=== PATIENT | male | born 1990 | race Hispanic/Latino ===

== ENCOUNTER → 2020-07-09 | Outpatient (CLI) | payer BC ==
--- NOTE | 2020-07-09 14:25 | NUR ---
BARIATRIC NUTRITION CONSULT FOLLOW UP Time of Visit: 12PM - 12:30PM Pt returns with a weight loss of three pounds and states pants feel looser. 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 His transition in sleep schedule lasted one week. Pt reports he is able to now meal prep and takes lunch to work rather than ordering fast food. Pt has had difficulty with maintaining workout routine, as he used to workout during the day and work in the evening. Now however it is difficult to cycle in the evening so he is face some adjustments. Pt does continue to work out on his days off, which is twice per week. He also states he is doing more walking at his job during the day. Pt reports 24-hour recall of energy dense foods at meal times and snacks on fruits. Pt consumed [employer], lemonade, beer, and water as beverages during meal times. Pt does carry a gallon jug of water daily and completes 75% of it each day. ANNABEL provided "Healthy Eating on the Run" and "20 Ways to Include more Fruits and Vegetables" handouts with Pt. Also discussed importance of healthy foods and nutrient-rich vs energy dense foods. 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 Addendum: 07/09/20 at [address] Amended: Links added. Addendum: 07/09/20 at [address] ADDENDUM RD to include Pt mentioned purchasing an air fryer to help with decreasing fatty food intake. Pt reports using on a regular basis and is very helpful!
== END | disposition home or self-care (01) ==
LOC: DTH 11:46
PROVIDERS: ATTEND Surgery
DX: R63.4 Abnormal weight loss (principal)
CPT/HCPCS: 97803

== ENCOUNTER → 2020-08-07 | Outpatient (CLI) | payer BC ==
--- NOTE | 2020-08-07 12:56 | NUR ---
PRE-OP BARIATRIC NUTRITION EDUCATION VISIT 3 OF 3 DATE: 08/07/20 TIME: 12:30-12:50PM ANNABEL thoroughly discussed nutrition requirements with Pt. RD reviewed Pre-Op Nutrition meal planning with Pt. RD reviewed Phases I-V with Pt. Pt with few questions. RD answered all Pt questions. Pt verbalized understanding. Pre-Op diet to be initiated 1 week prior to procedure. Contact information provided. RD to follow up with Pt post procedure. Addendum: 08/07/20 at [address] Amended: Links added.
== END | disposition home or self-care (01) ==
LOC: DTH 12:15
PROVIDERS: ATTEND Surgery
DX: Z01.818 Encounter for other preprocedural examination (principal); E66.09 Other obesity due to excess calories; Z68.30 Body mass index [BMI] 30.0-30.9, adult
CPT/HCPCS: 97803

== ENCOUNTER 2020-11-16 10:45 | Inpatient (IN) | payer BC ==
[~2020-11-16] VITALS: Ht 182.9 cm; Wt 145.1 kg
[~2020-11-16 10:45] MED LIST: IBUP-2784 PO; MULT-1203 PO
[2020-11-16 13:14] LABS: BASOPHILS % (AUTO) 0.1 % (0.0-5.0); EOSINOPHILS % (AUTO) 1.7 % (0.0-8.0); LYMPHOCYTES % (AUTO) 40.2 % (21.0-51.0); MEAN CORPUSCULAR HEMOGLOBIN 29.4 pg (27.0-33.0); MEAN CORPUSCULAR HGB CONC 33.1 g/dL (32.0-36.0); MEAN CORPUSCULAR VOLUME 88.8 fL (79-99); MONOCYTES % (AUTO) 7.6 % (3.0-13.0); NEUTROPHILS % (AUTO) 50.1 % (40.0-77.0); PLATELET COUNT (AUTO) 258 K/uL (130-400); RED BLOOD CELL COUNT(AUTO) 5.07 MIL/uL (4.50-6.20); RED CELL DISTRIBUTION WIDTH 12.4 % (11.0-15.5); WHITE BLOOD COUNT (AUTO) 7.3 K/uL (4.8-10.8)
[2020-11-16 13:24] LABS: CREATININE 0.9 mg/dL (0.5-1.5); POTASSIUM 3.9 mmol/L (3.5-5.1)
[2020-11-16 13:27] LABS: INR 1.03 (0.85-1.15); PROTHROMBIN TIME 11.2 SEC (9.6-11.6)
[2020-11-16 13:28] LABS: PARTIAL THROMBOPLASTIN TIME 29.2 SEC (26.3-35.5)
[2020-11-20 09:38] VITALS: BP_SYST 162; BP_SYST 165; BP_DIAS 103; BP_DIAS 93
[2020-11-23] VITALS (22 sets, daily range): BP systolic 112–150; BP diastolic 66–91
[2020-11-23] MEDS ORDERED: 0.9% NACL 500ML IV.SOLN 500 ML IV SCH (05:00)
[2020-11-23] MEDS: CEFAZOLIN SODIUM 1 GM VIAL IVP SCH ×2 (06:00→13:35)
[2020-11-23] MEDS ORDERED: LACTATED RINGERS 1000ML 1,000 ML IV ONE (10:11)
[2020-11-23] MEDS ORDERED: DEXAMETHASONE SOD PHOSPHATE 10MG/ML 1ML VIAL ONE (11:53)
[2020-11-23] MEDS ORDERED: SUCCINYLCHOLINE CHLORIDE 20 MG/ML 10 ML VIAL ONE (11:53)
[2020-11-23] MEDS ORDERED: ONDANSETRON 4MG INJ ONE (11:53)
[2020-11-23] MEDS ORDERED: LIDOCAINE PF 100MG/5ML (2%) SYRINGE 5ML ONE (11:53)
[2020-11-23] MEDS ORDERED: MIDAZOLAM HCL 1 MG/ML 2ML VIAL ONE (11:54)
[2020-11-23] MEDS ORDERED: ROCURONIUM 10MG/1ML SYR 10 MG/ML ML ONE (11:54)
[2020-11-23] MEDS ORDERED: PROPOFOL 10 MG/ML 20ML VIAL IV ONE ×2 (11:54→11:55)
[2020-11-23] MEDS ORDERED: GLYCOPYRROLATE 1 MG/5 ML SYRINGE ONE (11:54)
[2020-11-23] MEDS ORDERED: NEOSTIGMINE 5MG/5ML SYR IV ONE (11:54)
[2020-11-23] MEDS ORDERED: FENTANYL CITRATE PF 50 MCG/1 ML 2ML VIAL ONE (11:54)
[2020-11-23] MEDS ORDERED: OXYMETAZOLINE HCL SPRAY 15 ML BOTTLE ONE (12:03)
[2020-11-23] MEDS ORDERED: FENTANYL CITRATE PF 50 MCG/1 ML 5ML AMP IV ONE (13:49)
[2020-11-23] MEDS ORDERED: BUPIVACAINE/PF 0.5% 30ML VIAL ONE (14:13)
[2020-11-23] MEDS: LACTATED RINGERS 1000ML 1,000 ML IV SCH ×2 (14:45→21:07)
[2020-11-23] MEDS: MORPHINE 4 MG SYG IVP PRN (16:54)
[2020-11-23] MEDS: FAMOTIDINE 20MG VIAL IV SCH (21:07)
[2020-11-23] MEDS: ENOXAPARIN SODIUM 30 MG/0.3 ML SQ SCH (21:07)
[2020-11-24] VITALS (7 sets, daily range): BP systolic 132–155; BP diastolic 78–95
[2020-11-24] MEDS: ONDANSETRON 4MG INJ IVP PRN ×4 (00:22→20:44)
[2020-11-24] MEDS: MORPHINE 4 MG SYG IVP PRN ×4 (00:22→20:44)
[2020-11-24 05:18] LABS: HEMATOCRIT 37.2 % (42-54); MEAN CORPUSCULAR HEMOGLOBIN 29.8 pg (27.0-33.0); MEAN CORPUSCULAR HGB CONC 34.7 g/dL (32.0-36.0); MEAN CORPUSCULAR VOLUME 85.9 fL (79-99); PLATELET COUNT (AUTO) 231 K/uL (130-400); RED BLOOD CELL COUNT(AUTO) 4.33 MIL/uL (4.50-6.20)
[2020-11-24 05:40] LABS: CREATININE 0.9 mg/dL (0.5-1.5); POTASSIUM 4.1 mmol/L (3.5-5.1)
[2020-11-24 06:33] LABS: LYMPHOCYTES % (MANUAL) 10 % (22-44); MAN.DIFF COMMENT-IMPRESSION MANUAL DIFFERENTIAL; MONOCYTES % (MANUAL) 2 % (2-9); SEGMENTED NEUTROPHILS % 88 % (40-70)
[2020-11-24 06:35] LABS: PLATELET MORPHOLOGY COMMENT ADEQUATE
[2020-11-24] MEDS: LACTATED RINGERS 1000ML 1,000 ML IV SCH ×2 (06:55→14:45)
[2020-11-24] MEDS: ENOXAPARIN SODIUM 30 MG/0.3 ML SQ SCH ×2 (08:20→20:36)
[2020-11-24] MEDS: FAMOTIDINE 20MG VIAL IV SCH ×2 (08:21→20:35)
[2020-11-25 04:00] VITALS: BP 146/90
[2020-11-25 05:32] LABS: HEMATOCRIT 38.5 % (42-54); MEAN CORPUSCULAR HEMOGLOBIN 29.7 pg (27.0-33.0); MEAN CORPUSCULAR HGB CONC 34.3 g/dL (32.0-36.0); MEAN CORPUSCULAR VOLUME 86.7 fL (79-99); PLATELET COUNT (AUTO) 251 K/uL (130-400); RED BLOOD CELL COUNT(AUTO) 4.44 MIL/uL (4.50-6.20); RED CELL DISTRIBUTION WIDTH 12.4 % (11.0-15.5); WHITE BLOOD COUNT (AUTO) 11.3 K/uL (4.8-10.8)
[2020-11-25 05:50] LABS: ALBUMIN 3.7 g/dL (3.5-5.0); BILIRUBIN,TOTAL 0.6 mg/dL (0.2-1.0); CREATININE 0.9 mg/dL (0.5-1.5); POTASSIUM 4.2 mmol/L (3.5-5.1); TOTAL PROTEIN, SERUM 7.7 g/dL (6.0-8.3)
[2020-11-25 05:54] LABS: LYMPHOCYTES % (MANUAL) 14 % (22-44); MAN.DIFF COMMENT-IMPRESSION MANUAL DIFFERENTIAL; MONOCYTES % (MANUAL) 4 % (2-9); PLATELET MORPHOLOGY COMMENT ADEQUATE; SEGMENTED NEUTROPHILS % 82 % (40-70)
[2020-11-25] MEDS: LACTATED RINGERS 1000ML 1,000 ML IV SCH ×2 (06:45→14:51)
[2020-11-25 07:00] VITALS: BP 124/77
[2020-11-25] MEDS: ENOXAPARIN SODIUM 30 MG/0.3 ML SQ SCH (08:56)
[2020-11-25] MEDS: FAMOTIDINE 20MG VIAL IV SCH (08:57)
[2020-11-25 16:00] VITALS: BP 144/92
== END 2020-11-25 18:17 | disposition home or self-care (01) | DRG 621 ==
LOC: EDSTATUS 10:45 → DAHIP 11-23 09:34 → 3BH 11-23 16:11
PROVIDERS: ADMIT Surgery; ATTEND Surgery
PROC: 0DB64Z3 Excision of Stomach, Percutaneous Endoscopic Approach, Vertical (ICD-10-PCS; principal; 2020-11-23 13:49)
DX: E66.01 Morbid (severe) obesity due to excess calories (principal); Z20.822 Contact with and (suspected) exposure to COVID-19; K21.9 Gastro-esophageal reflux disease without esophagitis; Z68.41 Body mass index [BMI] 40.0-44.9, adult; E83.51 Hypocalcemia
CPT/HCPCS: 36415; 80048; 80053; 85025; 85610; 85730; 86850; 86900; 86901; G0378; J0330; J0690; J1100; J1650; J2001; J2250; J2270; J2405; J2704; J2710; J3010; J3490; J7030; J7040; J7120; U0003